=== PATIENT | female | born 1960 | race Native Hawaiian/Other Pacific Islander ===

== ENCOUNTER 2016-11-01 14:13 | Outpatient (CLI) | payer OTHER ==
[~2016-11-01 14:13] MED LIST: AMOX500C85 PO; BENA10TA3 PO; CIPRO500 MG PO; CLARITIN10 M1 PO; DIVA250T PO; DIVALPROEX500 M1 PO; FLOXIN OT; FURO40TA93 PO; GABA100C2 PO; HEARTBURN150 MG OR; HYDR-2748 PO; KEPPRA1000 MG PO; LEVE500T5 PO; LEVO0.0218; LEVO0.0218 PO; LEVO500I3 PO; LEVOTHROID200 MCG PO; LORA10TA3 PO; LOVASTATIN10 MG PO; METF500T PO; POTA20TA4 PO; PREMPRO; PREMPRO PO; PROAIR HFA IN; PROZAC10 MG PO; RANI150T78 PO; SYNTHROID PO; TIZA4TAB5 PO; UNITHROID25 MCG PO; VESICARE10 MG OR
== END 2016-11-01 15:15 | disposition home or self-care (01) ==
LOC: LAB 14:13
DX: R19.7 Diarrhea, unspecified (principal)
CPT/HCPCS: 82272; 87015; 87045; 87324; 87328; 87329; 87449; 87899

== ENCOUNTER 2016-11-10 19:53 | Emergency (ER) | payer OTHER ==
[~2016-11-10] VITALS: Ht 154.9 cm; Wt 87.1 kg
[2016-11-10 20:24] VITALS: BP 166/96; TEMP 97.4
== END 2016-11-10 20:33 | disposition home or self-care (01) ==
LOC: ED 19:53
DX: R10.2 Pelvic and perineal pain (principal); L29.8 Other pruritus
CPT/HCPCS: 99281

== ENCOUNTER 2017-07-27 11:17 | Outpatient (CLI) | payer OTHER | END 2017-07-27 22:15 | disposition home or self-care (01) | LOC: US 11:17 | DX: E03.8 Other specified hypothyroidism (principal); E04.1 Nontoxic single thyroid nodule ==

== ENCOUNTER 2017-09-27 21:23 | Emergency (ER) | payer OTHER ==
[~2017-09-27] VITALS: Ht 154.9 cm; Wt 104.3 kg
[2017-09-27 23:35] VITALS: BP 153/86; TEMP 98.9
== END 2017-09-27 23:37 | disposition home or self-care (01) ==
LOC: ED 21:23
PROC: 2W39X1Z Immobilization of Left Upper Extremity using Splint (ICD-10-PCS; principal; 2017-09-27)
DX: S42.295A Other nondisplaced fracture of upper end of left humerus, initial encounter for closed fracture (principal); W18.39XA Other fall on same level, initial encounter; Y92.89 Other specified places as the place of occurrence of the external cause
CPT/HCPCS: 96372; 99283; J1885

== ENCOUNTER 2017-11-06 11:45 | Outpatient (CLI) | payer OTHER | END 2017-11-06 11:47 | disposition short-term general hospital (02) | LOC: AMB 11:45 | DX: R10.31 Right lower quadrant pain (principal) | CPT/HCPCS: A0425; A0427 ==

== ENCOUNTER 2017-11-06 19:47 | Outpatient (CLI) | payer OTHER | END 2017-11-06 20:35 | disposition short-term general hospital (02) | LOC: AMB 19:47 | DX: J90 Pleural effusion, not elsewhere classified (principal); R10.31 Right lower quadrant pain | CPT/HCPCS: A0425; A0427 ==

== ENCOUNTER 2018-04-07 13:45 | Outpatient (CLI) | payer OTHER | END 2018-04-07 19:14 | disposition home or self-care (01) | LOC: RAD 13:45 | DX: M25.512 Pain in left shoulder (principal); M54.5 Low back pain ==

== ENCOUNTER 2018-11-18 11:55 | Emergency (ER) | payer OTHER ==
[~2018-11-18] VITALS: Ht 154.9 cm; Wt 104.3 kg
[2018-11-18 11:56] VITALS: TEMP 98.1
[2018-11-18 12:35] LABS: PLATELET COUNT 166 K/uL (152-353)
[2018-11-18 12:41] LABS: POTASSIUM 4.7 mmol/L (3.6-5.2); SODIUM 133 mmol/L (136-145)
[2018-11-18 16:25] VITALS: BP 110/74
== END 2018-11-18 16:25 | disposition home or self-care (01) ==
LOC: ED 11:55
PROVIDERS: Student in an Organized Health Care Education/Training Program
DX: N39.0 Urinary tract infection, site not specified (principal); S09.8XXA Other specified injuries of head, initial encounter; R00.0 Tachycardia, unspecified; W01.190A Fall on same level from slipping, tripping and stumbling with subsequent striking against furniture, initial encounter; Y92.098 Other place in other non-institutional residence as the place of occurrence of the external cause
CPT/HCPCS: 36415; 80053; 81000; 83735; 84443; 84484; 85027; 87077; 87086; 87088; 87186; 93005; 96360; 99284

== ENCOUNTER 2018-11-25 19:46 | Outpatient (CLI) | payer OTHER ==
[2018-11-26] MEDS ORDERED: DIVALPROEX500 M1 PO (04:05)
[2018-11-26] MEDS ORDERED: NYSTATIN1 POW XX (04:07)
[2018-11-26] MEDS ORDERED: HYDROCODONE BIT1 TA1 PO (04:09)
== END 2018-11-25 19:53 | disposition short-term general hospital (02) ==
LOC: AMB 19:46
DX: R52 Pain, unspecified (principal); R41.0 Disorientation, unspecified; R53.1 Weakness; R46.0 Very low level of personal hygiene; S20.229A Contusion of unspecified back wall of thorax, initial encounter; T63.421A Toxic effect of venom of ants, accidental (unintentional), initial encounter; Y92.018 Other place in single-family (private) house as the place of occurrence of the external cause
CPT/HCPCS: A0425; A0427

== ENCOUNTER 2018-11-25 20:04 | Inpatient (IN) | payer OTHER ==
[~2018-11-25] VITALS: Ht 152.4 cm; Wt 89.9 kg
[2018-11-25 20:05] VITALS: BP 161/73; TEMP 97.7
[2018-11-25 20:51] LABS: PLATELET COUNT 555 K/uL (152-353)
[2018-11-25 21:02] LABS: POTASSIUM 3.8 mmol/L (3.6-5.2)
[2018-11-26 02:37] VITALS: BP 144/73; TEMP 99.2; Ht 152.4 cm; Wt 89.9 kg
[2018-11-26 04:00] VITALS: BP 148/86; TEMP 98.6
[2018-11-26] MEDS ORDERED: DIVALPROEX500 M1 PO (04:05)
[2018-11-26] MEDS ORDERED: NYSTATIN1 POW XX (04:07)
[2018-11-26] MEDS ORDERED: HYDROCODONE BIT1 TA1 PO (04:09)
[2018-11-26 08:00] VITALS: BP 138/79; TEMP 98.7
[2018-11-26 12:00] VITALS: BP 109/63; TEMP 97.8
[2018-11-26 16:00] VITALS: BP 111/66; TEMP 98.3
[2018-11-26 20:00] VITALS: BP 120/58; TEMP 98.9
[2018-11-27] VITALS: BP 95/57; TEMP 98.3
[2018-11-27 04:00] VITALS: BP 99/58; TEMP 97.4
[2018-11-27 05:23] LABS: PLATELET COUNT 517 K/uL (152-353)
[2018-11-27 05:47] LABS: POTASSIUM 4.3 mmol/L (3.6-5.2)
[2018-11-27 08:00] VITALS: BP 113/64; TEMP 98.1
[2018-11-27 12:00] VITALS: BP 117/65; TEMP 98
[2018-11-27 16:00] VITALS: BP 119/60; TEMP 98.3
[2018-11-27 20:00] VITALS: BP 136/59; TEMP 98.4
[2018-11-28] VITALS: BP 133/61; TEMP 98.6
[2018-11-28 04:00] VITALS: BP 118/58; TEMP 98.3
[2018-11-28 08:00] VITALS: BP 99/52; TEMP 97.9
[2018-11-28 12:00] VITALS: BP 100/56; TEMP 89.6
[2018-11-28 16:00] VITALS: BP 93/59; TEMP 97.5
[2018-11-28 20:00] VITALS: BP 88/46; TEMP 98.7
[2018-11-29] VITALS (7 sets, daily range): BP systolic 72–123; BP diastolic 50–65; TEMP 97.2–98.3
[2018-11-29 04:51] LABS: POTASSIUM 4.8 mmol/L (3.6-5.2)
[2018-11-30 04:00] VITALS: BP 90/50; TEMP 97.5
[2018-11-30 08:00] VITALS: BP 80/56; TEMP 97.6
[2018-11-30 12:00] VITALS: BP 122/68; TEMP 97.7
[2018-11-30 16:00] VITALS: BP 95/48; TEMP 97.6
[2018-11-30 19:53] VITALS: BP 99/63; TEMP 97.8
[2018-11-30 23:58] VITALS: BP 113/66; TEMP 97.9
[2018-12-01 04:00] VITALS: BP 113/63; TEMP 97.9
[2018-12-01 08:00] VITALS: BP 109/74; TEMP 97.5
[2018-12-01 12:00] VITALS: BP 97/60; TEMP 98.4
[2018-12-01 16:00] VITALS: BP 108/50; TEMP 97.6
[2018-12-01 20:00] VITALS: BP 81/53; TEMP 98.3
[2018-12-02] VITALS: BP 102/59; BP 63/33; TEMP 98.5; TEMP 98.6
[2018-12-02 04:00] VITALS: BP 107/50; TEMP 98.2
[2018-12-02 08:00] VITALS: BP 114/64; TEMP 98.6
[2018-12-02 12:00] VITALS: BP 118/68; TEMP 98.2
[2018-12-02 16:00] VITALS: BP 86/53; TEMP 97.9
[2018-12-02 20:00] VITALS: BP 94/53; TEMP 98.8
[2018-12-03] VITALS: BP 102/59; TEMP 98.6
[2018-12-03 04:00] VITALS: BP 100/53; TEMP 98.2
[2018-12-03 08:00] VITALS: BP 96/47; TEMP 98.2
[2018-12-03 12:00] VITALS: BP 97/51; TEMP 98.5
== END 2018-12-03 11:12 | DRG 603 ==
LOC: ED 20:04 → MED/SURG 22:45
PROVIDERS: Family Medicine; Internal Medicine; ADMIT Emergency Medicine
DX: L03.818 Cellulitis of other sites (principal); E46 Unspecified protein-calorie malnutrition; G40.802 Other epilepsy, not intractable, without status epilepticus; T76.01XA Adult neglect or abandonment, suspected, initial encounter; T63.421A Toxic effect of venom of ants, accidental (unintentional), initial encounter; Y92.098 Other place in other non-institutional residence as the place of occurrence of the external cause; R62.7 Adult failure to thrive; I48.91 Unspecified atrial fibrillation; E78.00 Pure hypercholesterolemia, unspecified; K21.9 Gastro-esophageal reflux disease without esophagitis; M15.8 Other polyosteoarthritis; E03.8 Other specified hypothyroidism; E11.9 Type 2 diabetes mellitus without complications; I10 Essential (primary) hypertension; N32.81 Overactive bladder; E78.49 Other hyperlipidemia
CPT/HCPCS: 36415; 51702; 80048; 80053; 80164; 81000; 82550; 83605; 84439; 84443; 85027; 87040; 99283; J0744

== ENCOUNTER 2019-06-16 08:45 | Outpatient (CLI) | payer OTHER ==
[~2019-06-16 08:45] MED LIST changes: +HYDROCODONE BIT1 TA1 PO; +NYSTATIN1 POW XX
== END 2019-06-16 20:48 | disposition home or self-care (01) ==
LOC: RAD 08:45
DX: E55.9 Vitamin D deficiency, unspecified (principal); Z12.31 Encounter for screening mammogram for malignant neoplasm of breast; Z13.820 Encounter for screening for osteoporosis; N95.8 Other specified menopausal and perimenopausal disorders

== ENCOUNTER 2019-07-09 10:28 | Outpatient (CLI) | payer OTHER | END 2019-07-09 20:13 | disposition home or self-care (01) | LOC: MAMMO 10:28 | DX: R92.8 Other abnormal and inconclusive findings on diagnostic imaging of breast (principal) ==

== ENCOUNTER 2019-12-16 13:59 | Outpatient (CLI) | payer OTHER | END 2019-12-16 20:46 | disposition home or self-care (01) | LOC: MAMMO 13:59 | DX: Z90.10 Acquired absence of unspecified breast and nipple (principal); N64.59 Other signs and symptoms in breast | CPT/HCPCS: G0279 ==

== ENCOUNTER 2020-06-17 08:34 | Outpatient (CLI) | payer OTHER | END 2020-06-17 19:31 | disposition home or self-care (01) | LOC: MAMMO 08:34 | PROVIDERS: ATTEND Internal Medicine | DX: Z12.31 Encounter for screening mammogram for malignant neoplasm of breast (principal) ==

== ENCOUNTER 2021-04-03 15:11 | Inpatient (IN) | payer OTHER ==
[~2021-04-03] VITALS: Ht 154.9 cm; Wt 99.4 kg
[2021-04-03 15:12] VITALS: BP 147/91; TEMP 97.9
[2021-04-03 16:00] VITALS: BP 118/75
[2021-04-03 16:06] LABS: PLATELET COUNT 335 K/uL (152-353)
[2021-04-03 16:23] LABS: POTASSIUM 4.8 mmol/L (3.6-5.2)
[2021-04-03 18:49] VITALS: BP 123/69; TEMP 97.5; Ht 154.9 cm; Wt 99.4 kg
[2021-04-03 19:12] VITALS: BP 118/73; TEMP 98.1
[2021-04-03 23:12] VITALS: BP 103/59; TEMP 97.9
[2021-04-04 04:00] VITALS: BP 100/47; TEMP 97.8
[2021-04-04 08:00] VITALS: BP 126/63; TEMP 97.6
[2021-04-04 09:48] LABS: PLATELET COUNT 275 K/uL (152-353)
[2021-04-04 10:03] LABS: POTASSIUM 4.5 mmol/L (3.6-5.2)
[2021-04-04 12:00] VITALS: BP 110/45; TEMP 97.8
[2021-04-04] MEDS ORDERED: OMEPRAZOLE DR20 MG PO (12:05)
[2021-04-04] MEDS ORDERED: LEVO0.1224 PO (12:07)
[2021-04-04] MEDS ORDERED: TOLT4CAP2 PO (12:17)
[2021-04-04] MEDS ORDERED: PRAVACHOL20 MG PO (12:18)
[2021-04-04] MEDS ORDERED: LISI10TA11 PO (12:19)
[2021-04-04] MEDS ORDERED: FURO20TA67 PO (12:22)
[2021-04-04 16:00] VITALS: BP 127/73; TEMP 98
[2021-04-04 19:53] VITALS: BP 151/87; TEMP 98.3
[2021-04-04 23:59] VITALS: BP 117/70; TEMP 98.1
[2021-04-05 04:27] VITALS: BP 121/64; TEMP 98.1
[2021-04-05 05:30] LABS: PLATELET COUNT 239 K/uL (152-353)
[2021-04-05 05:47] LABS: POTASSIUM 4.2 mmol/L (3.6-5.2)
[2021-04-05 08:00] VITALS: BP 121/71; TEMP 97.5
[2021-04-05 12:00] VITALS: BP 142/83; TEMP 98
[2021-04-05 16:00] VITALS: BP 135/74; TEMP 97.2
[2021-04-05 20:08] VITALS: BP 135/78; TEMP 98.2
[2021-04-06 00:06] VITALS: BP 139/67; TEMP 98.4
[2021-04-06 04:00] VITALS: BP 143/74; TEMP 97.7
[2021-04-06 05:24] LABS: PLATELET COUNT 275 K/uL (152-353)
[2021-04-06 05:48] LABS: POTASSIUM 4.2 mmol/L (3.6-5.2)
[2021-04-06 08:00] VITALS: BP 172/79; TEMP 98.2
[2021-04-06 12:00] VITALS: BP 162/84; TEMP 98.2
[2021-04-06 16:00] VITALS: BP 150/75; TEMP 98.1
[2021-04-06 20:00] VITALS: BP 169/87; TEMP 98.6
[2021-04-07] VITALS: BP 174/86; TEMP 98.1
[2021-04-07 04:00] VITALS: BP 179/95; TEMP 98.6
[2021-04-07 05:02] LABS: PLATELET COUNT 299 K/uL (152-353)
[2021-04-07 08:00] VITALS: BP 169/73; TEMP 98.4
[2021-04-07 12:00] VITALS: BP 169/97; TEMP 97.5
== END 2021-04-07 16:27 | DRG 177 ==
LOC: ED 15:11 → MED/SURG 16:40
PROVIDERS: Emergency Medicine Emergency Medical Services; ADMIT Internal Medicine; ATTEND Internal Medicine
DX: U07.1 COVID-19 (principal); J18.8 Other pneumonia, unspecified organism; N39.0 Urinary tract infection, site not specified; G40.802 Other epilepsy, not intractable, without status epilepticus; B37.2 Candidiasis of skin and nail; E78.49 Other hyperlipidemia; E03.8 Other specified hypothyroidism; E11.9 Type 2 diabetes mellitus without complications; M15.8 Other polyosteoarthritis; K21.9 Gastro-esophageal reflux disease without esophagitis; R62.7 Adult failure to thrive; I11.0 Hypertensive heart disease with heart failure; I50.9 Heart failure, unspecified; N32.81 Overactive bladder; B96.20 Unspecified Escherichia coli [E. coli] as the cause of diseases classified elsewhere
CPT/HCPCS: 36415; 80053; 81000; 82550; 84443; 84484; 85007; 85027; 87077; 87086; 87088; 87186; 87502; 87635; 94760; 96360; 96365; 99284; J0456; J0696; J1100; J1650; U0003